=== PATIENT | female | born 1935 | race Caucasian/White ===

== ENCOUNTER 2023-11-14 15:19 | Inpatient (IN) | payer MEDICARE, BC, SELFPAY ==
[2023-11-14] VITALS (7 sets, daily range): BP systolic 149–164; BP diastolic 58–65; BMI 27.9
--- NOTE | 2023-11-14 08:56 | ED.GENMED ---
History of Present Illness
General
Chief Complaint: Cold/Flu/URI Symptoms
Time Seen by Provider: 11/14/23 08:56
Travel History
Have you had any contact with someone who has COVID-19?: No
Do you have any symptoms of coronavirus? Fever > 100 degrees, chills, cough, shortness of breath, sore throat, loss of taste or smell, muscle aches, or headache?: No
History of Present Illness
History of Present Illness:
HPI: Patient has multiple complaints:
#1 vomiting and diarrhea�she had similar episode a couple of months ago and seem to be doing a little bit better but now worse yesterday into today
#2 General weakness
#3 nausea
#4 excessive thirst
#5 sensation of mucus in the throat
#6 shortness of breath with exertion�denies history of weight gain but daughter does report some increased lower extremity edema; she is a former smoker; she has no shortness of breath at rest
EXAM:
GENERAL: Appears generally weak but in no significant distress
HEENT: Slightly dry oral mucosa
CARDIOVASCULAR: 3 out of 6 systolic murmur in the upper sternal borders, normal heart rate, regular rhythm, No chest wall tenderness
PULMONARY: No respiratory distress, breath sounds are slightly decreased equally
ABDOMEN: Soft with no peritoneal signs, no tenderness
NEUROLOGIC: Excellent strength all extremities, no coordination deficits
PSYCHIATRIC: Appropriate mental status, normal insight and judgement
EXTREMITIES: Nontender, trace bilateral ankle edema, moves all extremities equally
SKIN: No rash, no lesions
TIME OF INITIAL ENCOUNTER: 9 AM
NUMBER AND COMPLEXITY OF PROBLEMS ADDRESSED AT THE ENCOUNTER
� Chronic conditions affecting care: High blood pressure, hyperlipidemia, bladder cancer, former smoker
� Acute Exacerbation and/or Progression of Chronic Illness: These are subacute problem with acute worsening of nausea and vomiting
� Differential Diagnosis includes: Viral syndrome, pneumonia, influenza, viral GI illness, failure to thrive
AMOUNT AND/OR COMPLEXITY OF DATA TO BE REVIEWED AND ANALYZED
� I performed an independent evaluation of and my interpretation is:
EKG: Sinus 73, normal axis, poor R wave progression with no old to compare
CT: Nodular densities noted in the chest and liver
X-rays: Nodular densities noted on chest x-ray
Laboratory Studies: White count is slightly elevated 12.8, hemoglobin is a little bit low at 8.2, BNP is 2500
Other:
� Review of other/old records: Patient was admitted here nearly 3 years ago with acute appendicitis, hemoglobin 02/03/2021 was 10.3
� Clinical information was obtained by an independent historian: I spoke to the daughter at bedside
� Prescriptions/Medications Considered but not given:
� Further testing considered but not performed:
RISK OF COMPLICATIONS AND/OR MORBIDITY OR MORTALITY OF PATIENT MANAGEMENT
� Social determinants of health affecting care: Lives at home
� Discussion with other providers: Hospitalist for admission
� Escalation of care including admission/observation vs risk of discharge considered: Will give some IV fluids as she reports nausea and vomiting and diarrhea and also reports excessive thirst. The patient felt somewhat improved
after fluids were given however the patient becomes very short of breath with even just going from stretcher to bathroom a few feet away. Next echo not until next month�she has no Dr. Carpenter. Shortness of breath may be related to progression of
aortic stenosis and/or heart failure. Weakness could be related to some degree of dehydration as she does feel improved after some IV fluids were given.
Past History
Past History
ED Past Medical History: HTN and Hypercholesterolemia
ED Past Surgical History: Orthopedic and Other (hernia repair)
Social History
Tobacco: Non-smoker
Drug: None
Personal:
Living: with family
Employment: Retired
Family History
Family History: Other
Phy Exam
Physical Exam
Physical Exam:
See HPI
Course
Orders/Labs/Results
Orders:
Orders
11/14/23 08:37
COVID-19 Antigen Urgent
Source: Nasal Swab
Ferritin Urgent
Comment: ADD ON
INF RAPID [Influenza A+B Rapid Molecular] Urgent
CLARISSA Source: Nasal Swab
Specimen Description:
11/14/23 08:57
CR Chest - 2 Views Urgent
Comment:
Reason For Exam: sob
11/14/23 09:07
0.9% Sodium Chloride 500 ml [Nss] 500 ml IV BOLUS
11/14/23 09:09
0.9% Sodium Chloride 500 ml [Nss] 500 ml IV BOLUS
11/14/23 09:12
Ondansetron Injectable [Zofran] 4 mg IV NOW STA
11/14/23 09:23
CMP [Comprehensive Metabolic Panel] Urgent
Complete Blood Count/With Diff Urgent
Iron Urgent
Comment: ADD ON
NT-proBNP Urgent
Total Iron Binding Urgent
Comment: ADD ON
11/14/23 10:58
Add On- LAB Urgent
Tests Added?: iron panel, ferritin
11/14/23 11:09
Chest/Abd/Pelvis w Contrast CT [CT Chest/abd/pel W Iv Cont] Urgent
Comment:
Reason For Exam: abnormal CXR; eval for malig; h/o bladder ca
11/14/23 11:48
Electrocardiogram (*1) Urgent
Reason for Study: Shortness of Breath
EKG- Treatment ONCE
Abnormal Lab Results
11/14/23 11/14/23
08:37 09:23
WBC 12.8 H 10^3/uL
(4.8-10.8)
RBC 3.10 L 10^6/uL
(4.20-5.40)
Hgb 8.2 L g/dL
(12.0-16.0)
Hct 25.3 L %
(37.0-47.0)
MCH 26.5 L pg
(27.0-31.0)
MCHC 32.4 L g/dL
(33.0-37.0)
Plt Count 473 H 10^3/uL
(130-400)
Abs Immat Gran (auto) 0.1 H 10^3/uL
(0-0.05)
Absolute Neuts (auto) 10.3 H 10^3/uL
(1.4-6.5)
Absolute Lymphs (auto) 0.8 L 10^3/uL
(1.2-3.4)
Absolute Monos (auto) 1.3 H 10^3/uL
(0.1-0.6)
Neutrophils % 81.0 H %
(42.2-75.2)
Lymphocytes % 6.4 L %
(20.5-51.1)
Monocytes % 10.5 H %
(1.7-9.3)
Sodium 131 L mmol/L
(135-145)
BUN 19 H mg/dl
(7-17)
Glucose 107 H mg/dl
(70-99)
Calcium 8.3 L mg/dl
(8.4-10.2)
Iron 30 L ug/dl
(37-170)
TIBC 186 L ug/dl
(265-497)
% Saturation 16 L %
(20-50)
Ferritin 589.0 H ng/ml
(11.1-264.0)
AST 63 H U/L
(14-36)
Alkaline Phosphatase 224 H U/L
(38-126)
Total Protein 6.0 L g/dl
(6.3-8.2)
Albumin 3.0 L g/dl
(3.5-5.0)
11/14/23 09:23
11/14/23 09:23
Vital Signs
Initial and Last Documented VS:
Initial Vital Signs
Temp Pulse Resp BP Pulse Ox
98.4 F 72 18 158/65 97
11/14/23 08:04 11/14/23 08:04 11/14/23 08:04 11/14/23 08:04 11/14/23 08:04
Last Documented Vital Signs
Temp Pulse Resp BP Pulse Ox
98.4 F 70 20 164/62 97
11/14/23 08:04 11/14/23 11:30 11/14/23 11:30 11/14/23 11:00 11/14/23 08:04
*Critical Care Note
Total Time (30-74mins, 75-104mins- exclusive of procedures): Not Applicable
ED Attending Note
-
Portions of this chart may have been created with voice recognition software.� Occasional wrong word or��sound alike� substitutions may have occurred due to the inherent limitations of voice recognition software.
Discharge Plan
Departure
Patient Disposition: Admit
Date of Disposition: 11/14/23
Time of Disposition: 11:44
Presentation/result/management discussed w/ accepting MD/DO: Hospitalist
Discharge Problem:
Weakness
Prescriptions:
No Action
amlodipine 10 MG tablet
10 mg PO HS
metoprolol succinate 50 mg tablet extended release 24 hr
50 mg PO DAILY
azelastine 137 mcg (0.1 %) aerosol,spray
2 spray INTRANASAL BIDPRN PRN (Reason: congestion)
rosuvastatin 5 mg tablet
5 mg PO DAILY
cholecalciferol (vitamin D3) [Vitamin D3] 25 mcg (1,000 unit) Tablet
25 mcg PO DAILY
PreserVision AREDS 2,148 mcg-113 mg-45 mg-17.4mg Tablet
1 tab PO DAILY
Prevagen
1 tab PO DAILY
Referrals:
Chevy Chambers DO [Family Provider] -
Interventions
Interventions:
*Risk Screen - Suicide Last Done: 11/14/23 09:22
*General Assessment Last Done: 11/14/23 09:22
*Neglect/Abuse Screening Last Done: 11/14/23 09:22
ED- Fall Risk Assessment Last Done: 11/14/23 09:17
*ED COVID-19 Vaccine History Last Done: 11/14/23 08:04
ED- Pulmonary Assessment Last Done: 11/14/23 09:17
[2023-11-14 09:17] LABS: COVID-19 Antigen Negative (Negative)
[2023-11-14] MEDS: NSS 500 IV (09:24)
[2023-11-14] MEDS: ZOFRAN 4 MG IV ×2 (09:24→18:47)
[2023-11-14 09:43] LABS: % Basophils 0.6 % (0-2); % Immature Granulocytes 0.5 % (0-0.5); % Lymphocytes 6.4 % (20.5-51.1); % Monocytes 10.5 % (1.7-9.3); Absolute Basophils 0.1 10^3/uL (0-0.2); Absolute Eosinophils 0.1 10^3/uL (0-0.7); Absolute Immature Granulocytes 0.1 10^3/uL (0-0.05); Absolute Lymphocytes 0.8 10^3/uL (1.2-3.4); Absolute Monocytes 1.3 10^3/uL (0.1-0.6); Absolute Neutrophils 10.3 10^3/uL (1.4-6.5); Hematocrit 25.3 % (37.0-47.0); Hemoglobin 8.2 g/dL (12.0-16.0); Mean Corp Hgb Conc. 32.4 g/dL (33.0-37.0); Mean Corpuscular Hgb 26.5 pg (27.0-31.0); Mean Corpuscular Volume 81.6 fL (81.0-99.0); Mean Platelet Volume 9.5 fL (7.4-10.4); Nucleated Red Blood Cells % 0 %; Platelet Count 473 10^3/uL (130-400); Red Cell Dist. Width 14.5 % (11.5-14.5); White Blood Cell Count 12.8 10^3/uL (4.8-10.8)
[2023-11-14 09:57] LABS: Carbon Dioxide 24 mmol/L (22-30); Estimated Creatinine Clearance 50 ml/min; eGFR > 60.00
[2023-11-14 10:03] LABS: NT-proBNP 2500 pg/ml
[2023-11-14 10:07] LABS: ALT (SGPT) 34 U/L (0-35); AST (SGOT) 63 U/L (14-36); Alkaline Phosphatase 224 U/L (38-126); Blood Urea Nitrogen 19 mg/dl (7-17); Calcium 8.3 mg/dl (8.4-10.2); Chloride 104 mmol/L (98-107); Glucose 107 mg/dl (70-99); Potassium 4.6 mmol/L (3.5-5.1); Sodium 131 mmol/L (135-145); Total Bilirubin 0.5 mg/dl (0.2-1.3)
[2023-11-14 11:40] LABS: Iron 30 ug/dl (37-170)
[2023-11-14 11:50] LABS: Percent Saturation 16 % (20-50); Total Iron Binding Capacity 186 ug/dl (265-497)
--- NOTE | 2023-11-14 13:13 | HPS.HSE ---
Family Physician
-
Family Physician: Chevy Chambers
Chief Complaint
-
Shortness of Breath, Vomiting, Diarrhea
History of Present Illness
88 y/o female with past medical history of moderate aortic stenosis (sees Dr. Carpenter outpatient), hypertension, hyperlipidemia, bladder cancer (followed by Dr. Will - urologist at [facility]), presented with about 1 month history
of shortness of breath on exertion as well as fatigue. Patient reported vomiting up white mucus in September 2023. Patient reported some intermittent lightheadedness as well. Yesterday, patient also had lots of brownish red colored diarrhea and
multiple episodes of non-bloody emesis (vomited up food). She denied any chest pain or abdominal pain. Nausea medication given in the emergency room helped.
Medical History
Past Medical History
Past Medical History: Reports Other (As per HPI above)
Past Surgical History: Reports Orthopedic (Joint Replacements)
Social History
Tobacco: Former Smoker
Alcohol: Occasional
Drug: None
Family History
Family History: Cancer
Allergies / Home Medications
Allergies reflects when Allergies were last updated in [facility].
Home Medications with original date entered in [facility]
Allergy/Medication List:
Allergies
Allergy/AdvReac Type Severity Reaction Status Date / Time
pollen extracts Allergy nasal Verified 11/14/23 08:10
congestion
Home Medications
amlodipine 10 mg tablet 10 mg PO HS Blood pressure 02/02/21
Prevagen 1 tab PO DAILY Supplement 11/14/23
azelastine 137 mcg (0.1 %) nasal spray aerosol 2 spray intranasal BIDPRN PRN congestion 11/14/23
cholecalciferol (vitamin D3) 25 mcg (1,000 unit) tablet (Vitamin D3) 25 mcg PO DAILY Supplement 11/14/23
metoprolol succinate 50 mg tablet,extended release 24 hr 50 mg PO DAILY Blood Pressure 11/14/23
rosuvastatin 5 mg tablet 5 mg PO DAILY High Cholesterol 11/14/23
vitamins A,C,L-ikza-xoarfb 2,148 mcg-113 mg-45 mg-17.4 mg tablet (PreserVision AREDS) 1 tab PO DAILY Supplement 11/14/23
Review of Systems
-
A 12 point ROS was completed and negative except as noted: Yes
Physical Exam
Vital Signs
Vital Signs
Temp Pulse Resp BP Pulse Ox
98.4 F 72 24 164/62 97
11/14/23 08:04 11/14/23 12:15 11/14/23 12:15 11/14/23 11:00 11/14/23 08:04
Physical Exam
General: No Apparent Distress and Comfortable
HEENT: NormoCephalic
Respiratory: Clear
Cardiac: S1/S2 and Regular Rhythm
GI: Soft, Non Tender and Normal Bowel Sounds
Musculoskeletal: No Cyanosis, Edema, Left Lower Extremity and Edema, Right Lower Extremity
Skin: Warm and Dry
Neuro: Awake, Alert and AO x 3
Psych: Calm and Intact Judgment/Insight
Laboratory Results
-
11/14/23 09:23
11/14/23 09:23
Laboratory Results
Total Bilirubin 0.5 mg/dl (0.2-1.3) 11/14/23 09:23
AST 63 U/L (14-36) H 11/14/23 09:23
ALT 34 U/L (0-35) 11/14/23 09:23
Alkaline Phosphatase 224 U/L (38-126) H 11/14/23 09:23
Impression/Plan
-
Assessment/Plan
Shortness of Breath
[id number] HFpEF
Elevated proBNP
Small to moderate right pleural effusion with suspected pleural thickening
Bilateral Lower Extremity Swelling
-Lasix 1x dose as per cardiology
-Echocardiogram
-Asked (via [place] [facility]) Dr. Tello Bower about patient having PE vs. no PE and based on the CT imaging on November 14, 2023, he said pulmonary arteries are pretty well seen and negative for PE
-Cardiology consulted, recommendations appreciated
-Continue home Toprol XL
Hyponatremia
-Could be hypervolemic from CHF or hypovolemic with patient's vomiting and diarrhea
-Monitor BMP
-Will consider nephrology consult
Vomiting
Diarrhea
-Received IV fluids in the ER
-COVID and Influenza both negative
-Stool studies
-Check stool occult blood due to the red-brown color description of the diarrhea
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
Enlarged periaortic and interaortocaval lymph nodes
Pulmonary metastatic disease
Hepatic metastatic disease
Small to moderate amount of free fluid within the Abdomen/Pelvis on CT Imaging
-Consulted urology - recommendations appreciated - as patient follows Dr. Will, at [place], outpatient
-Consulted oncology, recommendations appreciated
Leukocytosis
Thrombocytosis - Possibly from Malignancy
-No obvious source of infection yet
-Possibly leukemoid reaction
-No pneumonia suspected
-Check UA although patient does not have symptoms of UTI
Normocytic Anemia
-Iron studies show Iron low @ 30, TIBC low @ 186, percent saturation 16, and ferritin high at 589 --> points more to anemia of chronic disease
Elevated ALP
Elevated AST
-Possibly from mets to the liver vs. CHF
-Monitor AST and ALT
'Superior endplate sclerosis involving the L1 vertebral body with vacuum disc phenomenon at T12-L1 disc space and small to moderate central Schmorl's node in superior endplate of L1.....Morphologically, this appears to represent a benign compression
deformity.'
-Will check with spine surgery about this
Hypertension
-Continue home Amlodipine and Metoprolol Succinate
Hyperlipidemia
-Continue home Rosuvastatin
DVT Prophylaxis: Lovenox
Code Status: Full Code
--- NOTE | 2023-11-14 15:30 | CON.CAR ---
Addendum entered and electronically signed by Latrell Montes De Oca MD 11/14/23 16:53:
I saw and examined the patient.
The PAPER BOX MAKER's note was reviewed and I agree with the note.
Comment: 88-year-old female (known to Dr. Carpenter, her primary canary breeder), hypertension, dyslipidemia, moderate aortic stenosis, former smoker, and prior bladder cancer (2014), who presented to the emergency department with chief complaint of
weakness. Overall, her exam is not very impressive of acute HF exacerbation and she claims she has lost weight. Agree with updating TTE and further recommendations to follow.
- Update TTE
- IV lasix x 1
Original Note:
Consultation
Consultation Request
Date/Time Consultation Requested: 11/14/23 15:13
Date/Time Consultation Performed: 11/14/23 15:30
Requesting Provider: Dr. Vazquez
Performing Provider: UZMA Adams for Dr. Montes De Oca
Reason for Consultation: Suspected heart failure
Medical History
-
Chief Complaint: Weakness
History of Present Illness:
Francine Garcia is an 88-year-old female (known to Dr. Carpenter, her primary canary breeder), hypertension, dyslipidemia, moderate aortic stenosis, former smoker, and prior bladder cancer (2014), who presented to the emergency department with chief
complaint of weakness. She states this has been ongoing. She believes this is related to rhinorrhea and excessive mucus in her nasal passages since September. She believes it is getting worse. She has seen ENT in the outpatient setting. Due to
the postnasal drip she has been vomiting. Diarrhea started within the last 48 hours. She states she is been spending most of the days in bed. Cardiology was consulted for concern for heart failure. She denies PND and orthopnea. She denies
weight gain. She does not require a standing diuretic in the outpatient setting. She had a CAT scan of the abdomen and pelvis which showed concern for metastatic disease. After being rehydrated in the emergency department she appeared more short
of breath. She reports she has mild dyspnea on exertion at baseline.
Past Medical History
Past Medical History: Cancer (Bladder), HTN, Hypercholesterolemia and Valvular Disease (aortic stenosis)
Past Surgical History: Appendectomy, Orthopedic and Urological
Social History
Tobacco: Former Smoker
Alcohol: None
Drug: None
Personal:
Living: With Family
Employment: Retired
Family History
Family History: Reviewed & Not Pertinent
Allergies / Home Medications
Allergy/AdvReac Type Severity Reaction Status Date / Time
pollen extracts Allergy nasal Verified 11/14/23 08:10
congestion
Medication Instructions Recorded Confirmed Type
amlodipine 10 mg tablet 10 mg PO HS Blood pressure 02/02/21 11/14/23 History
Prevagen 1 tab PO DAILY Supplement 11/14/23 11/14/23 History
azelastine 137 mcg (0.1 %) nasal 2 spray intranasal BIDPRN PRN 11/14/23 11/14/23 History
spray aerosol congestion
cholecalciferol (vitamin D3) 25 25 mcg PO DAILY Supplement 11/14/23 11/14/23 History
mcg (1,000 unit) tablet (Vitamin
D3)
metoprolol succinate 50 mg 50 mg PO DAILY Blood Pressure 11/14/23 11/14/23 History
tablet,extended release 24 hr
rosuvastatin 5 mg tablet 5 mg PO DAILY High Cholesterol 11/14/23 11/14/23 History
vitamins A,C,V-sqgv-rtjogl 2,148 1 tab PO DAILY Supplement 11/14/23 11/14/23 History
mcg-113 mg-45 mg-17.4 mg tablet
(PreserVision AREDS)
Review of Systems
-
History Source: Patient
All other systems: Negative unless noted
EENT: Runny Nose
Respiratory: Cough
Cardiac: No Symptoms
Physical Exam
Vital Signs
Temp Pulse Resp BP Pulse Ox
98.4 F 78 26 164/62 97
11/14/23 08:04 11/14/23 15:15 11/14/23 15:15 11/14/23 11:00 11/14/23 08:04
Lab Results
11/14/23 09:23
11/14/23 09:23
Nfu-W-Ptfmstuabjb Pept 2500 pg/ml 11/14/23 09:23
Physical Exam
General: Well Developed, Well Nourished, No Apparent Distress and Comfortable
HEENT: Normocephalic, Anicteric and Moist Mucous Membranes
Respiratory: Clear and Non Labored Respirations
Cardiac: S1/S2 and Regular Rhythm; Negative Peripheral Edema
Breast: Deferred by me
GI: Soft, Non Tender and Non Distended
Rectal: Deferred by Provider
Musculoskeletal: No Clubbing and No Edema
Skin: Warm and Dry
Neuro: AO x 3
Hematologic/Lymphatic: No Lymphadenopathy
Psych: Calm
Impression / Plan
-
HFpEF, acute on chronic
-Diuresis with furosemide 20mg IV x 1
-She was 68kg at her office visit last week
-Pleural effusion on CXR, could be in the setting of malignancy
-Trend daily weight, I/O, and BMP
-Update TTE
-Heart failure education
HTN, chronic, stable
-Continue metoprolol and amlodipine
Transitional cell carcinoma of the bladder
-Diagnosed in 2014
-Metastasis to left kidney, lungs, and neoplastic lymphadenopathy per CT
Aortic stenosis, moderate, update TTE
Dyslipidemia, on rosuvastatin
Data Reviewed
-
EKG: Report Reviewed by me (Sinus rhythm, rate 73)
Radiology: Report Reviewed by me (CXR: Multiple bilateral pulmonary nodular masses, which very likely represent pulmonary metastatic disease. Small right pleural effusion, new.)
Medical Tests (Nuc Med, Echo etc): Report Reviewed by me (Prior TTE as above)
Labs: Labs Reviewed by me
Old Records: Reviewed
[2023-11-14 17:47] LABS: Troponin I < 0.012 ng/ml
[2023-11-14] MEDS: LASIX 20 MG IV (18:03)
[2023-11-14] MEDS: CRESTOR PO (18:04)
[2023-11-14] MEDS: LOVENOX 40 MG SC (18:04)
[2023-11-14] MEDS: LOPRESSOR PO (18:05)
[2023-11-14] MEDS: CRESTOR 5 MG PO (18:47)
[2023-11-14] MEDS: LOPRESSOR 25 MG PO (18:47)
[2023-11-14] MEDS: NORVASC 10 MG PO (22:32)
[2023-11-14 23:59] LABS: Troponin I 0.059 ng/ml
--- NOTE | 2023-11-15 00:58 | PTCARENOTE ---
CLAY SHOP SUPERVISOR Tammie made aware of patient's critical lab for trops 0.059. No new orders at this time, plan of care continues.
[2023-11-15 03:50] VITALS: BP 147/64
[2023-11-15 05:45] LABS: % Basophils 0.8 % (0-2); % Eosinophils 1.9 % (0-6); % Immature Granulocytes 0.4 % (0-0.5); % Lymphocytes 11.1 % (20.5-51.1); % Monocytes 12.9 % (1.7-9.3); % Neutrophils 72.9 % (42.2-75.2); Absolute Basophils 0.1 10^3/uL (0-0.2); Absolute Eosinophils 0.2 10^3/uL (0-0.7); Absolute Immature Granulocytes 0.1 10^3/uL (0-0.05); Absolute Lymphocytes 1.3 10^3/uL (1.2-3.4); Absolute Monocytes 1.5 10^3/uL (0.1-0.6); Absolute Neutrophils 8.7 10^3/uL (1.4-6.5); Hematocrit 24.1 % (37.0-47.0); Hemoglobin 7.7 g/dL (12.0-16.0); Mean Corpuscular Hgb 26.2 pg (27.0-31.0); Mean Platelet Volume 9.6 fL (7.4-10.4); Nucleated Red Blood Cells % 0 %; Platelet Count 452 10^3/uL (130-400); Red Blood Cell Count 2.94 10^6/uL (4.20-5.40); Red Cell Dist. Width 14.6 % (11.5-14.5); White Blood Cell Count 11.9 10^3/uL (4.8-10.8)
[2023-11-15 06:00] VITALS: BMI 26.6
[2023-11-15 06:07] LABS: Magnesium 2.3 mg/dl (1.6-2.3)
[2023-11-15 06:19] LABS: Troponin I 0.034 ng/ml
[2023-11-15 07:00] VITALS: BP 138/65
[2023-11-15 08:20] LABS: Urine Albumin 2+ (Neg - Trace); Urine Bilirubin Negative (Negative); Urine Character Clear (Clear); Urine Color Yellow; Urine Glucose Negative (Negative); Urine Ketone Negative (Negative); Urine Leukocyte Trace (Negative); Urine Nitrite Negative (Negative); Urine Occult Blood Negative (Negative); Urine Specific Gravity 1.015 (<1.030); Urine Urobilinogen Negative (Neg - 1+)
[2023-11-15] MEDS: VITAMIN D3 (cholecalciferol) 25 MCG PO (08:28)
[2023-11-15] MEDS: TOPROL XL 50 MG PO (08:28)
[2023-11-15] MEDS: CRESTOR 5 MG PO (08:28)
[2023-11-15 08:43] LABS: Urine Bacteria Few (Negative)
--- NOTE | 2023-11-15 10:26 | W.PN.URO.CBU ---
Today's Communication / Plan
-
Advise palliative care
Discussed with Hospitalist and Medical Oncology
Assessment / Plan
-
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
---
Discussed findings at length with patient and
Do not advise invasive procedures
Will let medical oncology discuss options available to patient
Have strongly suggested a course of palliative care
I will reach out to Dr. Will on Friday
Diagnosis
-
Date of Service: November 15, 2023
-
Patient Diagnosis:
History of bladder cancer: managed by Dr. Luis Antonio Will
Patient reports having undergone TURBT several years ago
Surveillance cystoscopy has reportedly failed to identify any lower tract recurrence
Unfortunately, the patient presented to the ER yesterday for evaluation of intractable nausea and was found to have probable widely metastatic urothelial cell carcinoma arising in the left kidney (images personally reviewed)
Subjective
-
feels well other than ongoig nausea
Objective
-
Vital Signs
Temp Pulse Resp BP Pulse Ox
98.5 F 77 20 138/65 94
11/15/23 07:00 11/15/23 08:28 11/15/23 07:00 11/15/23 08:28 11/15/23 07:00
Intake and Output
11/14/23 11/15/23 11/16/23
06:59 06:59 06:59
Intake Total 240 / 240
Balance 240 / 240
Intake:
Oral fluids 240 / 240
Other:
Number of approximated LARGE 4
amounts of urine
Laboratory Results
11/15/23 05:18
11/14/23 09:23
Review of Systems
-
Constitutional: No Symptoms
Respiratory: No Symptoms
Cardiac: No Symptoms
Abdomen/GI: Nausea
: No Symptoms
Neurological: No Symptoms
Physical Exam
-
General - well developed, well nourished, no acute distress
Abdomen - soft, non-tender
Neuro - AOx3, no motor deficits
--- NOTE | 2023-11-15 10:55 | W.PN.CD ---
Today's Communication / Plan
-
Lasix 20 mg daily
BMP next week if d/c over weekend, if she is here Friday check BMP to ensure Cr and electrolytes are stable.
We we will sign off; please reach out with questions or concerns.
Impression / Plan
-
�88-year-old female (known to Dr. Carpenter, her primary enrollment manager), hypertension, dyslipidemia, moderate aortic stenosis, former smoker, and prior bladder cancer (2014), who presented to the emergency department with chief complaint of weakness.
She is feeling better today. It is unclear to me if the Lasix IV contributed to this. However, I discussed with family and patient that we will start her on low-dose Lasix to prevent volume overload.
HFpEF, acute on chronic
-lasix 20 mg daily
-She was 68kg at her office visit last week
-Pleural effusion on CXR, could be in the setting of malignancy
-TTE below
Nonischemic myocardial injury likely secondary to heart failure exacerbation and anemia
New anemia Hgb 7.7 this AM
- workup per primary
HTN, chronic, stable
-Continue metoprolol and amlodipine
Transitional cell carcinoma of the bladder
-Diagnosed in 2014
-Metastasis to left kidney, lungs, and neoplastic lymphadenopathy per CT
Aortic stenosis, moderate, update TTE
Dyslipidemia, on rosuvastatin
TTE: �CONCLUSIONS
�Normal LV size and function with no regional wall motion abnormalities.
�LVEF is 60% by Rene's method of discs.
�No LVH.
�Normal right ventricular size and function.
�Mild mitral regurgitation.
�Moderate aortic stenosis.
�Insufficient data for estimation of PASP.
�Compared to prior from August 16, 2022, no significant change.
Physical Exam
Vital Signs/Labs
Vital Signs
Temp Pulse Resp BP Pulse Ox
98.5 F 77 20 138/65 94
11/15/23 07:00 11/15/23 08:28 11/15/23 07:00 11/15/23 08:28 11/15/23 07:00
11/14/23 11/15/23 11/16/23
06:59 06:59 06:59
Actual Weight 145 lb 5 oz
11/15/23 05:18
11/14/23 09:23
Magnesium 2.3 mg/dl (1.6-2.3) 11/15/23 05:18
11/14/23
09:23
Hat-W-Pjjboscejaq Pept 2500
LAB Results
11/14/23 11/14/23 11/15/23
17:07 23:25 05:18
Troponin I < 0.012 0.059 H* D 0.034 D
11/15/23 11/15/23 11/15/23
10:59 16:59 22:59
Troponin I Cancelled Cancelled Cancelled
Physical Exam
Constitutional: No acute distress
EENT: Anicteric
Cardiovascular: Rhythm & rate is regular, Pedal edema is absent and Systolic murmur present
Respiratory: Respiratory effort normal and Lungs clear to auscul. (decreased at bases )
GI: Soft
Neuro/Psych: Alert and Oriented
Data Reviewed
-
Date of Service: November 15, 2023
EKG: Tracing Personally Visualized and interpreted
Echo: Tracing Personally Visualized and interpreted
Labs: Labs Reviewed by me
[2023-11-15 11:00] VITALS: BP 154/55
[2023-11-15] MEDS: LASIX 20 MG PO (11:08)
[2023-11-15 15:00] VITALS: BP 143/61
--- NOTE | 2023-11-15 15:34 | CM ---
Reviewed chart, met with patient and her family who was at bedside to obtain information for assessment. Patient stated that she lives with her spouse in a two story home with a first floor set up with two steps to enter. Her daughter lives next
door and is very supportive.
Patient described herself as independent with her ADLs, personal care, bathing, dressing and ambulates without device.
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
Patient has grab bars in the shower, and a shower chair.
Patient has had VN services in the past through [facility]. She has never been to a SNF.
Patient has a prescription plan and uses [facility] in [place] for all of her medications.
Her PCP is Chevy Chambers MD
Patient feels that she is at her baseline and that she will be able to return home when she is medically stable for discharge.
Plan: Case management will continue to follow and assist with discharge planning. Home when cleared medically.
[2023-11-15 16:25] LABS: % Basophils 0.5 % (0-2); % Eosinophils 1.5 % (0-6); % Immature Granulocytes 0.5 % (0-0.5); % Lymphocytes 11.5 % (20.5-51.1); % Monocytes 11.3 % (1.7-9.3); % Neutrophils 74.7 % (42.2-75.2); Absolute Basophils 0.1 10^3/uL (0-0.2); Absolute Eosinophils 0.2 10^3/uL (0-0.7); Absolute Immature Granulocytes 0.1 10^3/uL (0-0.05); Absolute Lymphocytes 1.6 10^3/uL (1.2-3.4); Absolute Monocytes 1.5 10^3/uL (0.1-0.6); Absolute Neutrophils 10.1 10^3/uL (1.4-6.5); Mean Corpuscular Hgb 26.5 pg (27.0-31.0); Mean Corpuscular Volume 82.8 fL (81.0-99.0); Mean Platelet Volume 9.6 fL (7.4-10.4); Nucleated Red Blood Cells % 0 %; Platelet Count 469 10^3/uL (130-400); Red Blood Cell Count 3.02 10^6/uL (4.20-5.40); Red Cell Dist. Width 14.6 % (11.5-14.5); White Blood Cell Count 13.5 10^3/uL (4.8-10.8)
[2023-11-15 16:40] LABS: ALT (SGPT) 31 U/L (0-35); AST (SGOT) 56 U/L (14-36); Albumin 2.9 g/dl (3.5-5.0); Alkaline Phosphatase 226 U/L (38-126); Blood Urea Nitrogen 23 mg/dl (7-17); Calcium 8.3 mg/dl (8.4-10.2); Carbon Dioxide 24 mmol/L (22-30); Chloride 100 mmol/L (98-107); Estimated Creatinine Clearance 42 ml/min; Glucose 97 mg/dl (70-99); Potassium 4.5 mmol/L (3.5-5.1); Sodium 130 mmol/L (135-145); Total Bilirubin 0.3 mg/dl (0.2-1.3); Total Protein 5.7 g/dl (6.3-8.2); eGFR > 60.00
--- NOTE | 2023-11-15 17:14 | W.PN.HOSP.TC ---
Today's Communication/Plan
-
May or may not need PRBC transfusion depending on whether Hgb less than 8 tomorrow AM
Appreciate oncology, urology, and cardiology
Assessment / Plan
Assessment / Plan
Physical Exam
General: No Apparent Distress and Comfortable
HEENT: Normocephalic
Respiratory: Clear
Cardiac: S1/S2 and Regular Rhythm
GI: Soft, Non Tender and Normal Bowel Sounds
Musculoskeletal: No Cyanosis. Edema, Left Lower Extremity and Edema, Right Lower Extremity
Skin: Warm and Dry
Neuro: Awake, Alert and AO x 3
Psych: Calm and Intact Judgment/Insight
Assessment/Plan
Shortness of Breath
Ivvyd-nk-Noymffm HFpEF
Elevated proBNP
Small to moderate right pleural effusion with suspected pleural thickening
Bilateral Lower Extremity Swelling
-Lasix 20 mg daily as per cardiology
-Echocardiogram results noted
-Asked (via [place] [facility]) Dr. Tello Bower about patient having PE vs. no PE and based on the CT imaging on November 14, 2023, he said pulmonary arteries are pretty well seen and negative for PE
-Cardiology consulted, recommendations appreciated
-Continue home Toprol XL
-BMP within in 1 week after discharge
Hyponatremia
-Could be hypervolemic from CHF or hypovolemic with patient's vomiting and diarrhea
-Monitor BMP
-Will consider nephrology consult
Vomiting
Diarrhea
-Received IV fluids in the ER
-COVID and Influenza both negative
-Stool studies
-Check stool occult blood due to the red-brown color description of the diarrhea
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
Enlarged periaortic and interaortocaval lymph nodes
Pulmonary metastatic disease
Hepatic metastatic disease
Small to moderate amount of free fluid within the Abdomen/Pelvis on CT Imaging
-Consulted urology - recommendations appreciated - as patient follows Dr. Will, at [facility], outpatient
-Consulted oncology, recommendations appreciated
Leukocytosis
Thrombocytosis - Possibly from Malignancy
-No obvious source of infection yet
-Possibly leukemoid reaction
-No pneumonia suspected
-Check UA although patient does not have symptoms of UTI
Normocytic Anemia
-Iron studies show Iron low @ 30, TIBC low @ 186, percent saturation 16, and ferritin high at 589 --> points more to anemia of chronic disease
-If repeat Hgb is less than 8 then will transfuse blood
Elevated ALP
Elevated AST
-Possibly from mets to the liver vs. CHF
-Monitor AST and ALT
'Superior endplate sclerosis involving the L1 vertebral body with vacuum disc phenomenon at T12-L1 disc space and small to moderate central Schmorl's node in superior endplate of L1.....Morphologically, this appears to represent a benign compression
deformity.'
-Will check with spine surgery about this
Hypertension
-Continue home Amlodipine and Metoprolol Succinate
Hyperlipidemia
-Continue home Rosuvastatin
DVT Prophylaxis: Lovenox
Code Status: Full Code
Anticipated Discharge: 24 - 48 hours
Subjective/Interval History
-
Date of Service: November 15, 2023
Patient was seen and examined with family at bedside. She felt improvement in her symptoms compared to when she came in.
Objective Data
-
Labs:
Laboratory Results
11/15/23 11/15/23
05:18 16:01
WBC 11.9 H 13.5 H
Hgb 7.7 L 8.0 L
Hct 24.1 L 25.0 L
Plt Count 452 H 469 H
Sodium 130 L
Potassium 4.5
Chloride 100
Carbon Dioxide 24
BUN 23 H
Creatinine 0.8
Glucose 97
Calcium 8.3 L
Total Bilirubin 0.3
AST 56 H
ALT 31
Alkaline Phosphatase 226 H
Vital Signs:
Vital Signs
Temp Pulse Resp BP Pulse Ox
98.5 F 69 16 143/61 93
11/15/23 15:00 11/15/23 15:00 11/15/23 15:00 11/15/23 15:00 11/15/23 15:00
I&O
11/14/23 11/15/23 11/16/23
06:59 06:59 06:59
Intake Total 240 / 240
Balance 240 / 240
[2023-11-15] MEDS: LOVENOX 40 MG SC (17:36)
[2023-11-15 19:45] VITALS: BP 149/61
[2023-11-15] MEDS: NORVASC 10 MG PO (21:47)
--- NOTE | 2023-11-15 22:42 | CON.ONC ---
Impression
Impression
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
Plan
Plan
Reviewed options of comfort care vs liver biopsy to understand options for treatment that would be palliative given her incurable metastatic state. She and family will discuss options -- she is safe to d/c if PT assess for ambulatory skills/safety.
Patient History
History of Present Illness
88yo WF with prior hx of bladder cancer resecrted and treated with BCG therapy per daughter 8 years prior seen in surveillance with recent clear cystoscopy admitted with weakness and nonbloody diarrhea associated with new cough w/o fever prompting
ER evaluation for which CT CAP noted 3.2 centimeter KELVIN mass along with subcarinal adenopathy with bilobar liver metastases and large exophytic lesion of the lower 2/3rds pole left kidney. She notes mild SHANNON without significant weight loss.
Past-Medical/Surgical History
hyperlipidemia; HTN
Patient Medication
Medication Instructions Recorded Confirmed Last Taken Type
amlodipine 10 mg tablet 10 mg PO HS Blood pressure 02/02/21 11/14/23 02/02/21 History
Prevagen 1 tab PO DAILY Supplement 11/14/23 11/14/23 Unknown History
azelastine 137 mcg (0.1 %) nasal 2 spray intranasal BIDPRN PRN 11/14/23 11/14/23 Unknown History
spray aerosol congestion
cholecalciferol (vitamin D3) 25 25 mcg PO DAILY Supplement 11/14/23 11/14/23 Unknown History
mcg (1,000 unit) tablet (Vitamin
D3)
metoprolol succinate 50 mg 50 mg PO DAILY Blood Pressure 11/14/23 11/14/23 Unknown History
tablet,extended release 24 hr
rosuvastatin 5 mg tablet 5 mg PO DAILY High Cholesterol 11/14/23 11/14/23 Unknown History
vitamins A,C,J-tild-esgzoh 2,148 1 tab PO DAILY Supplement 11/14/23 11/14/23 Unknown History
mcg-113 mg-45 mg-17.4 mg tablet
(PreserVision AREDS)
Active Medications
Generic Name Dose Route Start Last Admin
Trade Name Freq PRN Reason Stop Dose Admin
Amlodipine Besylate 10 mg 11/14/23 22:00 11/15/23 21:47
Amlodipine 10 Mg Tablet PO 12/12/23 21:59 10 mg
HS KALIE Administration
Cholecalciferol 25 mcg 11/15/23 08:00 11/15/23 08:28
Cholecalciferol (Vitamin D3) 25 Mcg Tablet (1,000 Units) PO 12/13/23 07:59 25 mcg
DAILY KALIE Administration
Enoxaparin Sodium 40 mg 11/14/23 18:00 11/15/23 17:36
Enoxaparin Sodium 40 Mg/0.4 Ml Syringe SC 12/12/23 17:59 40 mg
QPM KALIE Administration
Furosemide 20 mg 11/15/23 11:00 11/15/23 11:08
Furosemide 20 Mg Tablet PO 12/13/23 10:59 20 mg
DAILY KALIE Administration
Metoprolol Succinate 50 mg 11/15/23 08:00 11/15/23 08:28
Metoprolol 50 Mg Extended Release Tablet PO 12/13/23 07:59 50 mg
DAILY KALIE Administration
Ondansetron HCl 4 mg 11/14/23 18:15 11/14/23 18:47
Ondansetron 4 Mg/2 Ml Vial IV 12/12/23 18:14 4 mg
Q6HPRN PRN Administration
NAUSEA/VOMITING
Rosuvastatin Calcium 5 mg 11/14/23 16:59 11/15/23 08:28
Rosuvastatin (Crestor) 5 Mg Tablet PO 12/12/23 16:58 5 mg
DAILY KALIE Administration
Sodium Chloride 0 flush 11/14/23 17:00
Sodium Chloride 0.9% (Flush) Syringe IV 12/12/23 16:59
PER PROTOCOL KALIE
Review of Systems
-
History Source: Patient and Family
All Other Systems: Reviewed and Negative (other than as per HPI)
Physical Exam
-
General: Well Developed
HEENT: Moist Mucous Membranes
Cardiology: Normal Sinus Rhythm
Pulmonary: Clear
GI: Soft, Normal Bowel Sounds and Distended
Musculoskeletal: No Clubbing and No Cyanosis
Extremities: Pulses Present
Neurology: Non Focal
Psych: Calm
Labs
Lab Results
WBC 13.5 10^3/uL (4.8-10.8) H 11/15/23 16:01
RBC 3.02 10^6/uL (4.20-5.40) L 11/15/23 16:01
Hgb 8.0 g/dL (12.0-16.0) L 11/15/23 16:
Hct 25.0 % (37.0-47.0) L 11/15/23 16:
MCV 82.8 fL (81.0-99.0) 11/15/23 16:
MCH 26.5 pg (27.0-31.0) L 11/15/23 16:
MCHC 32.0 g/dL (33.0-37.0) L 11/15/23 16:01
RDW 14.6 % (11.5-14.5) H 11/15/23 16:
Plt Count 469 10^3/uL (130-400) H 11/15/23 16:01
MPV 9.6 fL (7.4-10.4) 11/15/23 16:01
Abs Immat Gran (auto) 0.1 10^3/uL (0-0.05) H 11/15/23 16:01
Absolute Neuts (auto) 10.1 10^3/uL (1.4-6.5) H 11/15/23 16:01
Absolute Lymphs (auto) 1.6 10^3/uL (1.2-3.4) 11/15/23 16:01
Absolute Monos (auto) 1.5 10^3/uL (0.1-0.6) H 11/15/23 16:01
Absolute Eos (auto) 0.2 10^3/uL (0-0.7) 11/15/23 16:01
Absolute Basos (auto) 0.1 10^3/uL (0-0.2) 11/15/23 16:01
Immature Gran % 0.5 % (0-0.5) 11/15/23 16:01
Neutrophils % 74.7 % (42.2-75.2) 11/15/23 16:01
Lymphocytes % 11.5 % (20.5-51.1) L 11/15/23 16:01
Monocytes % 11.3 % (1.7-9.3) H 11/15/23 16:01
Eosinophils % 1.5 % (0-6) 11/15/23 16:01
Basophils % 0.5 % (0-2) 11/15/23 16:01
Creatinine 0.8 mg/dL (0.6-1.0) 11/15/23 16:01
Vital Signs
Vital Signs
Temp Pulse Resp BP Pulse Ox
98.8 F 75 16 149/61 93
11/15/23 19:45 11/15/23 19:45 11/15/23 19:45 11/15/23 19:45 11/15/23 19:45
[2023-11-15 23:14] VITALS: BP 128/51
[2023-11-16] VITALS (8 sets, daily range): BP systolic 134–172; BP diastolic 51–90; BMI 26.9
[2023-11-16 07:32] LABS: % Basophils 0.6 % (0-2); % Eosinophils 1.7 % (0-6); % Immature Granulocytes 0.6 % (0-0.5); % Lymphocytes 9.5 % (20.5-51.1); % Monocytes 12.8 % (1.7-9.3); % Neutrophils 74.8 % (42.2-75.2); Absolute Basophils 0.1 10^3/uL (0-0.2); Absolute Eosinophils 0.2 10^3/uL (0-0.7); Absolute Immature Granulocytes 0.1 10^3/uL (0-0.05); Absolute Lymphocytes 1.2 10^3/uL (1.2-3.4); Absolute Monocytes 1.6 10^3/uL (0.1-0.6); Hematocrit 24.1 % (37.0-47.0); Hemoglobin 7.7 g/dL (12.0-16.0); Mean Corpuscular Volume 81.4 fL (81.0-99.0); Mean Platelet Volume 9.7 fL (7.4-10.4); Nucleated Red Blood Cells % 0 %; Platelet Count 453 10^3/uL (130-400); Red Blood Cell Count 2.96 10^6/uL (4.20-5.40); Red Cell Dist. Width 14.4 % (11.5-14.5); White Blood Cell Count 12.1 10^3/uL (4.8-10.8)
[2023-11-16] MEDS: CRESTOR 5 MG PO (07:56)
[2023-11-16] MEDS: TOPROL XL 50 MG PO (07:56)
[2023-11-16] MEDS: VITAMIN D3 (cholecalciferol) 25 MCG PO (07:56)
[2023-11-16] MEDS: LASIX 20 MG PO (07:56)
--- NOTE | 2023-11-16 11:48 | W.PN.HOSP.TC ---
Addendum entered and electronically signed by Pan Vazquez MD 11/16/23 13:18:
Cancel stool studies except stool occult blood as patient is not having diarrhea anymore.
Original Note:
Today's Communication/Plan
-
1 unit of blood to be transfused later today
If all stable and good, can be discharge tomorrow
Assessment / Plan
Assessment / Plan
Physical Exam
General: No Apparent Distress and Comfortable
HEENT: Normocephalic
Respiratory: Clear
Cardiac: S1/S2 and Regular Rhythm
GI: Soft, Non Tender and Normal Bowel Sounds
Musculoskeletal: No Cyanosis. Edema, Left Lower Extremity. Edema, Right Lower Extremity.
Skin: Warm and Dry
Neuro: Awake, Alert and Oriented x 3
Psych: Calm and Intact Judgment/Insight

Echocardiogram report as per cardiology:
'CONCLUSIONS
Normal LV size and function with no regional wall motion abnormalities.
LVEF is 60% by Rene's method of discs.
No LVH.
Normal right ventricular size and function.
Mild mitral regurgitation.
Moderate aortic stenosis.
Insufficient data for estimation of PASP.
Compared to prior from August 16, 2022, no significant change.'

Assessment/Plan
Shortness of Breath
Lhqbl-cm-Kclmrbz HFpEF
Elevated proBNP
Small to moderate right pleural effusion with suspected pleural thickening
Bilateral Lower Extremity Swelling
-Lasix 20 mg daily as per cardiology
-Echocardiogram results noted (as above)
-Asked (via [place] [facility]) Dr. Tello Bower about patient having PE vs. no PE and based on the CT imaging on November 14, 2023, he said pulmonary arteries are pretty well seen and negative for PE
-Cardiology consulted, recommendations appreciated
-Continue home Toprol XL
-BMP within 1 week after discharge
Hyponatremia
-Could be hypervolemic from CHF or hypovolemic with patient's vomiting and diarrhea
-Monitor BMP
-Ordered urine sodium, urine osmolality and serum osmolality --> will need to follow-up on these
-Continue PO fluid restriction
-Can consider nephrology consult if needed
Vomiting
Diarrhea
-Received IV fluids in the ER
-COVID and Influenza both negative
-Stool studies
-Check stool occult blood due to the red-brown color description of the diarrhea
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
Enlarged periaortic and interaortocaval lymph nodes
Pulmonary metastatic disease
Hepatic metastatic disease
Small to moderate amount of free fluid within the Abdomen/Pelvis on CT Imaging
-Consulted urology - recommendations appreciated - as patient follows Dr. Will, at [place], outpatient
-Consulted oncology, recommendations appreciated
Leukocytosis
Thrombocytosis - Possibly from Malignancy
-No obvious source of infection yet
-Possibly leukemoid reaction
-No pneumonia suspected
-Check UA although patient does not have symptoms of UTI
Normocytic Anemia
-Iron studies show Iron low @ 30, TIBC low @ 186, percent saturation 16, and ferritin high at 589 --> points more to anemia of chronic disease/anemia of inflammation
-If repeat Hgb is less than 8 then will transfuse blood
-Discussed (via [place] [facility], on November 16, 2023) with Dr. Olson about patient Hgb of 7.7 --> he recommended ordered 1 unit PRBC leukoreduced, and that the PRBC does not need to be CMV negative or irradiated
-1 unit leukoreduced PRBC ordered on November 16, 2023
Elevated ALP
Elevated AST
-Possibly from mets to the liver vs. CHF
-Monitor AST and ALT
'Superior endplate sclerosis involving the L1 vertebral body with vacuum disc phenomenon at T12-L1 disc space and small to moderate central Schmorl's node in superior endplate of L1.....Morphologically, this appears to represent a benign compression
deformity.'
-Can consider checking with spine surgery about this
Hypertension
-Continue home Amlodipine and Metoprolol Succinate
Hyperlipidemia
-Continue home Rosuvastatin
DVT Prophylaxis: Lovenox
Code Status: Full Code
Anticipated Discharge: Within 24 hours
Subjective/Interval History
-
Date of Service: November 16, 2023
Patient was seen and examined. She reported feeling better than when she came in, less short of breath.
Objective Data
-
Labs:
Laboratory Results
11/16/23
06:37
WBC 12.1 H
Hgb 7.7 L
Hct 24.1 L
Plt Count 453 H
Vital Signs:
Vital Signs
Temp Pulse Resp BP Pulse Ox
98.5 F 72 16 165/65 95
11/16/23 11:00 11/16/23 11:00 11/16/23 11:00 11/16/23 11:00 11/16/23 11:00
I&O
11/15/23 11/16/23 11/17/23
06:59 06:59 06:59
Intake Total 240 / 240 900 / 900 240 / 240
Output Total 500 / 500 225 / 225
Balance 240 / 240 400 / 400 15 /
--- NOTE | 2023-11-16 12:25 | W.PN.URO.CBU ---
Today's Communication / Plan
-
Home tomorrow
Assessment / Plan
-
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
---
Discussed findings at length with patient and
Do not advise invasive procedures
Have strongly suggested a course of palliative care
I will reach out to Dr. Will on Friday
Dr. Chambers advised
Diagnosis
-
Date of Service: November 16, 2023
-
Patient Diagnosis:
History of bladder cancer: managed by Dr. Luis Antonio Will
Patient reports having undergone TURBT several years ago
Surveillance cystoscopy has reportedly failed to identify any lower tract recurrence
Unfortunately, the patient presented to the ER yesterday for evaluation of intractable nausea and was found to have probable widely metastatic urothelial cell carcinoma arising in the left kidney (images personally reviewed)
Subjective
-
remains comfortable
Objective
-
Vital Signs
Temp Pulse Resp BP Pulse Ox
98.5 F 72 16 165/65 95
11/16/23 11:00 11/16/23 11:00 11/16/23 11:00 11/16/23 11:00 11/16/23 11:00
Intake and Output
11/15/23 11/16/23 11/17/23
06:59 06:59 06:59
Intake Total 240 / 240 900 / 900 240 / 240
Output Total 500 / 500 225 / 225
Balance 240 / 240 400 / 400 15 / 15
Intake:
Oral fluids 240 / 240 900 / 900 240 / 240
Output:
Urine, Voided 500 / 500 225 / 225
Other:
Number of approximated LARGE 4
amounts of urine
Laboratory Results
11/16/23 06:37
Review of Systems
-
Constitutional: Fatigue
Respiratory: No Symptoms
Cardiac: No Symptoms
Abdomen/GI: No Symptoms
: No Symptoms
Physical Exam
-
General - well developed, well nourished, no acute distress
Abdomen - soft, non-tender
Skin - warm & dry with no rash
Neuro - AOx3, no motor deficits
[2023-11-16 12:34] LABS: Blood Urea Nitrogen 20 mg/dl (7-17); Carbon Dioxide 23 mmol/L (22-30); Chloride 103 mmol/L (98-107); Estimated Creatinine Clearance 38 ml/min; Glucose 94 mg/dl (70-99); Potassium 4.3 mmol/L (3.5-5.1); Sodium 130 mmol/L (135-145); eGFR > 60.00
[2023-11-16 12:42] LABS: Osmolality Serum 277 mOsm/kg (275-300)
[2023-11-16 16:06] LABS: Osmolality Urine 435 mOsm/kg (300-900)
[2023-11-16 16:30] LABS: Urine Sodium 71 mmol/L (30-90)
[2023-11-16] MEDS: LOVENOX 40 MG SC (17:59)
[2023-11-16] MEDS: NORVASC 10 MG PO (21:12)
[2023-11-17 00:12] VITALS: BP 148/58
[2023-11-17 03:55] VITALS: BP 162/71
[2023-11-17 05:47] LABS: % Basophils 0.6 % (0-2); % Immature Granulocytes 0.4 % (0-0.5); % Lymphocytes 8.1 % (20.5-51.1); % Monocytes 11.3 % (1.7-9.3); % Neutrophils 78.6 % (42.2-75.2); Absolute Basophils 0.1 10^3/uL (0-0.2); Absolute Eosinophils 0.1 10^3/uL (0-0.7); Absolute Immature Granulocytes 0.1 10^3/uL (0-0.05); Absolute Lymphocytes 1.1 10^3/uL (1.2-3.4); Absolute Monocytes 1.5 10^3/uL (0.1-0.6); Absolute Neutrophils 10.6 10^3/uL (1.4-6.5); Hematocrit 27.4 % (37.0-47.0); Hemoglobin 9.1 g/dL (12.0-16.0); Mean Corp Hgb Conc. 33.2 g/dL (33.0-37.0); Mean Corpuscular Hgb 26.8 pg (27.0-31.0); Mean Corpuscular Volume 80.8 fL (81.0-99.0); Mean Platelet Volume 9.6 fL (7.4-10.4); Nucleated Red Blood Cells % 0 %; Platelet Count 453 10^3/uL (130-400); Red Blood Cell Count 3.39 10^6/uL (4.20-5.40); Red Cell Dist. Width 14.3 % (11.5-14.5); White Blood Cell Count 13.6 10^3/uL (4.8-10.8)
[2023-11-17 06:00] VITALS: BMI 27.0
[2023-11-17 06:10] LABS: Blood Urea Nitrogen 18 mg/dl (7-17); Calcium 8.1 mg/dl (8.4-10.2); Carbon Dioxide 22 mmol/L (22-30); Chloride 102 mmol/L (98-107); Estimated Creatinine Clearance 43 ml/min; Glucose 77 mg/dl (70-99); Potassium 4.4 mmol/L (3.5-5.1); Sodium 130 mmol/L (135-145); eGFR > 60.00
[2023-11-17 07:00] VITALS: BP 157/66
[2023-11-17] MEDS: LASIX 20 MG PO (08:17)
[2023-11-17] MEDS: CRESTOR 5 MG PO (08:17)
[2023-11-17] MEDS: COMPAZINE 10 MG IV (08:17)
[2023-11-17] MEDS: TOPROL XL 50 MG PO (08:17)
[2023-11-17] MEDS: VITAMIN D3 (cholecalciferol) 25 MCG PO (08:17)
[2023-11-17 10:02] VITALS: BP 139/82; PULSE 67; O2SAT 93
[2023-11-17 10:10] VITALS: BP 139/82; PULSE 70; O2SAT 93
--- NOTE | 2023-11-17 10:35 | W.HF.CON ---
Heart Failure
- LV Function
Left ventricular function study result: LV Ejection fraction >40%
Ejection Fraction Percentage: 60
- ARNI
Patient already on ARNI: No
Heart Failure ARNI Not Indicated: LV Ejection Fraction >/= 40%
- ACEI/ARB
Patient already on ACEI/ARB: No
Heart Failure ACEI/ARB Not Indicated: LV Ejection Fraction > 40%
- Beta Alexia
Patient already on Evidence Based Beta Alexia: Yes
- Mineralocorticord Receptor Antagonist
Patient already on MRA: No
Heart Failure MRA Not Indicated: LV Ejection Fraction > 40%
- SGLT-2 Inhibitor
Patient already on SGLT-2 Inhibitor: No
Heart Failure SGLT-2 Inhibitor Not Indicated: LV Ejection Fraction >40%
- NYHA CHF Classification
NYHA CHF Classification Level: Class III - Symptoms w/ min exertion, interferes w/ nml daily activity (anemia)
- ACC/AHA Stage
ACC/AHA Stage: Stage C: Symptomatic Heart Failure
--- NOTE | 2023-11-17 10:56 | W.PN.HOSP.TC ---
Today's Communication/Plan
-
dc
Assessment / Plan
Assessment / Plan
Physical Exam
General: No Apparent Distress and Comfortable
HEENT: Normocephalic
Respiratory: Clear
Cardiac: S1/S2 and Regular Rhythm
GI: Soft, Non Tender and Normal Bowel Sounds
Musculoskeletal: No Cyanosis. Edema, Left Lower Extremity. Edema, Right Lower Extremity.
Skin: Warm and Dry
Neuro: Awake, Alert and Oriented x 3
Psych: Calm and Intact Judgment/Insight

Echocardiogram report as per cardiology:
'CONCLUSIONS
Normal LV size and function with no regional wall motion abnormalities.
LVEF is 60% by Rene's method of discs.
No LVH.
Normal right ventricular size and function.
Mild mitral regurgitation.
Moderate aortic stenosis.
Insufficient data for estimation of PASP.
Compared to prior from August 16, 2022, no significant change.'

Assessment/Plan
Shortness of Breath
Uliyi-ar-Aynqmro HFpEF
Elevated proBNP
Small to moderate right pleural effusion with suspected pleural thickening
Bilateral Lower Extremity Swelling
-Lasix 20 mg daily as per cardiology
-Echocardiogram results noted (as above)
-Asked (via [place] [facility]) Dr. Tello Bower about patient having PE vs. no PE and based on the CT imaging on November 14, 2023, he said pulmonary arteries are pretty well seen and negative for PE
-Cardiology consulted, recommendations appreciated
-Continue home Toprol XL
Hyponatremia
Na at 130, stable. Possible SIADH related to pulmonary metastases.
-Could be hypervolemic from CHF or hypovolemic with patient's vomiting and diarrhea
-Monitored BMP
- Normal urine sodium, urine osmolality. Low normal serum osmolality.
-Continue PO fluid restriction upon dc
- f/w family doctor.
# Nausea, trial of Compazine.
-COVID and Influenza both negative
No abd pain. ABd is soft.
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
Enlarged periaortic and interaortocaval lymph nodes
Pulmonary metastatic disease
Hepatic metastatic disease
Small to moderate amount of free fluid within the Abdomen/Pelvis on CT Imaging
-Consulted urology - recommendations appreciated - as patient follows Dr. Will, at [place], outpatient
-Consulted oncology, recommendations appreciated. Oncology reviewed options of comfort care versus liver biopsy to understand the options for treatment that would be palliative given her incurable metastatic disease. Patient will need to follow-up
with oncology as outpatient.
Leukocytosis
Thrombocytosis - Possibly from Malignancy
-No obvious source of infection yet
-Possibly leukemoid reaction
-No pneumonia suspected
No fevers.
-Urine test showed clear urine, not cloudy. No dysuria.
Normocytic Anemia
Hemoglobin upon admission 8.2
-Iron studies show Iron low @ 30, TIBC low @ 186, percent saturation 16, and ferritin high at 589 --> points more to anemia of chronic disease/anemia of inflammation
-Discussed with Dr. Olson about patient Hgb of 7.7 --> he recommended ordered 1 unit PRBC leukoreduced, and that the PRBC does not need to be CMV negative or irradiated
-1 unit leukoreduced PRBC ordered on November 16, 2023
Hemoglobin around 9.1 upon discharge
# Metastatic liver disease with elevated ALP/ Elevated AST
-from mets to the liver
No significant abdominal pain. Compazine for nausea
#'Superior endplate sclerosis involving the L1 vertebral body with vacuum disc phenomenon at T12-L1 disc space and small to moderate central Schmorl's node in superior endplate of L1.....Morphologically, this appears to represent a benign
compression deformity.'
-Can consider checking with spine surgery about this
#Primary hypertension
-Continue home Amlodipine and Metoprolol Succinate
Hyperlipidemia
-Continue home Rosuvastatin
DVT Prophylaxis: Lovenox
Code Status: Full Code
Total discharge time spent to see the patient, examine the patient on the floor, review data and lab results, discuss discharge plan with the patient, nursing staff around 65 minutes
Anticipated Discharge: Today
Subjective/Interval History
-
Date of Service: November 17, 2023
No chest pain
No abd pain Nausea this morning
Objective Data
-
Labs:
Laboratory Results
11/17/23
05:06
WBC 13.6 H
Hgb 9.1 L
Hct 27.4 L
Plt Count 453 H
Sodium 130 L
Potassium 4.4
Chloride 102
Carbon Dioxide 22
BUN 18 H
Creatinine 0.8
Glucose 77
Calcium 8.1 L
Vital Signs:
Vital Signs
Temp Pulse Resp BP Pulse Ox
98.5 F 74 18 157/66 95
11/17/23 07:00 11/17/23 07:00 11/17/23 07:00 11/17/23 07:00 11/17/23 07:00
I&O
11/16/23 11/17/23 11/18/23
06:59 06:59 06:59
Intake Total 900 / 900 1450 / 1450 120 / 120
Output Total 500 / 500 750 / 750
Balance 400 / 400 700 / 700 120 / 120
--- NOTE | 2023-11-17 14:04 | W.DCSUMMARY ---
Discharge Summary
Discharge Data
Date of Admission: 11/14/23
Date of Discharge: 11/17/23
-
Pending Results: No
Hospital Course
88 years old female presented to the hospital with chronic progressive weakness, diarrhea and cough. Patient reported excessive mucus in her nasal passages for several weeks. Patient was seen by [facility] for concern regarding heart failure.
Patient received furosemide treatment. She was diagnosed with acute on chronic heart failure with preserved ejection fraction. She had mild elevation of troponin which was felt to be nonischemic myocardial injury. She was found to have anemia
around 7.7. Echocardiogram showed normal left ventricular size and function with ejection fraction 60%. She had mild mitral regurgitation and moderate aortic stenosis. Scan of the chest, abdomen and pelvis showed infiltrative mass in the left
kidney with enlarged periaortic and interaortocaval lymph node, moderate right pleural effusion, small to moderate amount of free fluid within the abdomen/pelvis, pulmonary metastatic disease with hepatic metastatic disease. Patient was seen by
oncology. Findings were consistent with likely renal cell carcinoma. Oncologist reviewed options of comfort care versus liver biopsy to understand options for treatment with the patient and her family. Patient and family decided to follow-up with
oncology in the outpatient setting. Sodium was borderline low. She did not have confusion. She was given Compazine for nausea. She tolerated diet. No significant diarrhea in the hospital. She was given 1 unit of blood transfusion and her
hemoglobin was around 9.1 upon discharge. She remained hemodynamically stable. She was evaluated by physical therapy and recommended home health with a walker for balance. Patient was discharged home in a stable condition.
Discharge Plan
-
Patient Disposition: Home with Home Care
Discharge Diagnosis/Procedures: Renal cell carcinoma with pulmonary and hepatic metastases/anemia of inflammation
Acute on chronic heart failure with a preserved ejection fraction
Non-ischemic myocardial injury
Primary hypertension
Diet: As tolerated and Restrict fluids to 64 oz
Blood Work: BMP,LFT,CBC
Instructions: *CBC Heart Failure Instructions
Referrals:
Chevy Chambers DO [Family Provider] - in one to two weeks
Azam Olson, DO [Active] - in one to two weeks
Prescriptions:
New
furosemide 20 mg Tablet
20 mg PO DAILY Qty: 30 0RF
prochlorperazine maleate [Compazine] 10 mg tablet
10 mg PO Q8H PRN (Reason: nausea and vomiting) Qty: 30 0RF
Continued
amlodipine 10 MG tablet
10 mg PO HS
metoprolol succinate 50 mg tablet extended release 24 hr
50 mg PO DAILY
azelastine 137 mcg (0.1 %) aerosol,spray
2 spray INTRANASAL BIDPRN PRN (Reason: congestion)
rosuvastatin 5 mg tablet
5 mg PO DAILY
cholecalciferol (vitamin D3) [Vitamin D3] 25 mcg (1,000 unit) Tablet
25 mcg PO DAILY
PreserVision AREDS 2,148 mcg-113 mg-45 mg-17.4mg Tablet
1 tab PO DAILY
Prevagen
1 tab PO DAILY
Discharge Orders:
Discharge Patient (As Directed); Ordered 11/17/23
Ordered By: May Turcios
--- NOTE | 2023-11-17 16:11 | CM ---
MD entered order for discharge.
SPoke with patient at bedside she said she was ready for discharge.
IMM reviewed signed ion chart.
Offered VN she requested [facility] referral placed
Script for walker obtained from PT issued walker.
Latrell will drive her home.
PLAn Home with [facility] fax [phone]
== END 2023-11-17 14:40 | disposition home health service (06) | DRG 686 ==
LOC: 3 WEST ACU 15:19
PROVIDERS: Emergency Medicine; ADMITTING PHYSICIAN Hospitalist; ATTENDING PHYSICIAN Internal Medicine; CONSULT PHYSICIAN Internal Medicine Cardiovascular Disease; CONSULT PHYSICIAN Specialist; EMERGENCY PHYSICIAN Emergency Medicine; FAMILY PHYSICIAN Family Medicine; OTHER PHYSICIAN Internal Medicine Hematology & Oncology
PROC: 30233N1 Transfusion of Nonautologous Red Blood Cells into Peripheral Vein, Percutaneous Approach (ICD-10-PCS; 2023-11-16)
DX: C64.2 Malignant neoplasm of left kidney, except renal pelvis (principal); I50.33 Acute on chronic diastolic (congestive) heart failure; C78.7 Secondary malignant neoplasm of liver and intrahepatic bile duct; C78.02 Secondary malignant neoplasm of left lung; C78.01 Secondary malignant neoplasm of right lung; I5A Non-ischemic myocardial injury (non-traumatic); G95.89 Other specified diseases of spinal cord; E22.2 Syndrome of inappropriate secretion of antidiuretic hormone; I11.0 Hypertensive heart disease with heart failure; D63.0 Anemia in neoplastic disease; I08.0 Rheumatic disorders of both mitral and aortic valves; E78.00 Pure hypercholesterolemia, unspecified; R11.2 Nausea with vomiting, unspecified; R19.7 Diarrhea, unspecified; D75.838 Other thrombocytosis; D72.829 Elevated white blood cell count, unspecified; R59.0 Localized enlarged lymph nodes; Z11.52 Encounter for screening for COVID-19; Z85.51 Personal history of malignant neoplasm of bladder; Z87.891 Personal history of nicotine dependence
CPT/HCPCS: 71046; 71260; 74177; 80048; 80053; 81003; 81015; 82728; 83540; 83550; 83735; 83880; 83930; 83935; 84300; 84484; 85025; 86850; 86900; 86901; 86920; 87502; 87811; 93005; 93306; 93970; 96361; 96374; 97162; 97166; 99285; P9016; Q9967